=== PATIENT | female | born 1955 | race Caucasian/White ===

== ENCOUNTER → 2016-07-02 | Outpatient (CLI) | payer BC ==
--- NOTE | 2016-07-02 15:37 | MAMMOGRAPHY REPORT ---
BILATERAL DIGITAL SCREENING MAMMOGRAM TOMOSYNTHESIS WITH CAD: 07/02/2016 CLINICAL HISTORY: Routine screening. Patient has no complaints. TECHNIQUE: Breast tomosynthesis in addition to standard 2D mammography was performed. Current study was also evaluated with a Computer Aided Detection (CAD) system. COMPARISON: Comparison is made to exams dated: 02/14/2015 mammogram, 06[facility]28[facility]2012 [facility]ogram[facility]. BREAST COMPOSITION: The tissue of both breasts is heterogeneously dense, which may obscure small ma sses. FINDINGS: No suspicious masses, calcifications, or areas of architectural distortion are noted in e ither breast. There has been no significant interval change compared to prior exams. IMPRESSION: ACR BI-RADS CATEGORY 1: NEGATIVE There is no mammographic evidence of malignancy. A 1 year screening mammogram is recommended. The p atient will receive written notification of the results. Approximately 10% of breast cancers are not detected with mammography. A negative mammographic repor t should not delay biopsy if a clinically suggestive mass is present. Dee Moscoso M.D. ah/:07/02/2016 14:07:07 Railroad Operating Engineer: Bernadette AYALA(R)(M), [facility] letter sent: Normal 1/2 BI-RADS Code: ACR BI-RADS Category 1: Negative
== END | disposition home or self-care (01) ==
LOC: C.MAMM 12:19
PROVIDERS: ATTEND Family Medicine
DX: Z12.31 Encounter for screening mammogram for malignant neoplasm of breast (principal)

== ENCOUNTER → 2016-11-12 | Outpatient (CLI) | payer BC ==
--- NOTE | 2016-11-12 17:28 | DIAGNOSTIC IMAGING REPORT ---
RIGHT ANKLE MIN 3 VIEWS ROUTINE CLINICAL HISTORY: Lateral right ankle pain. No known trauma. COMPARISON: None FINDINGS: Alignment of the right ankle is anatomic. No fracture or osseous lesion. Talar dome is intact. There is moderate lateral ankle soft tissue swelling. There is minimal posterior and plantar calcaneal spurring. IMPRESSION: 1. No significant osseous abnormality of the right ankle. 2. Moderate lateral ankle soft tissue swelling. Electronically signed by: Karlos Abbott M.D. 11/12/2016 5:27 PM Dictated Date/Time: 11/12/2016 5:26 PM
--- NOTE | 2016-11-12 17:30 | DIAGNOSTIC IMAGING REPORT ---
RIGHT FOOT MIN 3 VIEWS ROUTINE CLINICAL HISTORY: Lateral right ankle and foot pain. No known trauma. COMPARISON: None FINDINGS: Tarsometatarsal joints are intact. There is no fracture or suspicious lesion within the right foot. There is no radiographic evidence for stress fracture. Lateral ankle soft tissue swelling is present. An 8 mm ossific/calcific density along the lateral aspect of the cuboid is chronic. No erosions are identified. Joint spaces are preserved. IMPRESSION: 1. No acute fracture or dislocation of the right foot. 2. 8 mm ossific density along the lateral aspect of the cuboid which is likely chronic and of doubtful significance. This may reflect an accessory ossicle or less likely old avulsed bone fragment. Electronically signed by: Karlos Abbott M.D. 11/12/2016 5:29 PM Dictated Date/Time: 11/12/2016 5:27 PM
== END | disposition home or self-care (01) ==
LOC: C.RAD 17:03
PROVIDERS: ATTEND Nurse Practitioner
DX: M25.571 Pain in right ankle and joints of right foot (principal)